=== PATIENT | female | born 1955 | race American Indian/Alaskan Native ===

== ENCOUNTER 2018-12-24 10:17 | Emergency (ER) | payer SELFPAY ==
[2018-12-24 10:27] VITALS: BP 188/109
--- NOTE | 2018-12-24 12:21 | Emergency Department Report ---
ED Lower Extremity HPI - General Chief Complaint: Fall Stated Complaint: RT/KNEE/LOWERBACK/RT THIGH PAIN Time Seen by Provider: 12/24/18 11:52 Source: patient Mode of arrival: Ambulatory Limitations: No Limitations - History of Present Illness Initial Comments: 63-year-old female with history of arthritis, presents to ED with right knee pain. She reports chronic right knee pain, states her right knee gave out yesterday. Patient denies falling directly onto her knee. Also reports acute exacerbation of her chronic low back pain as well. The patient states no relief with her usual therapies which consist of heating pad and OTC meds. MD Complaint: knee injury -: days(s) (1) Injury: Knee: Right Severity: moderate Improves With: nothing Worsens With: weight bearing Context: other ("knee gave out", hx of arthritis) Associated Symptoms: denies: snap/pop sensation, swelling - Related Data Previous Rx's Medication Instructions Recorded Last Taken Type Naproxen [Naprosyn] 500 mg PO BID #20 tablet 12/24/18 Unknown Rx predniSONE [Prednisone] 50 mg PO DAILY #5 tablet 12/24/18 Unknown Rx traMADol [Ultram] 50 mg PO Q6HR PRN #7 tablet 12/24/18 Unknown Rx Allergies Allergy/AdvReac Type Severity Reaction Status Date / Time No Known Allergies Allergy Unverified 12/24/18 10:22 ED Review of Systems ROS: Stated complaint: RT/KNEE/LOWERBACK/RT THIGH PAIN Other details as noted in HPI Comment: All other systems reviewed and negative Musculoskeletal: back pain, arthralgia Neurological: denies: weakness, numbness, paresthesias ED Past Medical Hx - Past Medical History Hx Arthritis: Yes - Surgical History Past Surgical History?: No - Social History Smoking Status: Never Smoker Substance Use Type: None - Medications Home Medications: Home Medications Medication Instructions Recorded Confirmed Last Taken Type Naproxen [Naprosyn] 500 mg PO BID #20 tablet 12/24/18 Unknown Rx predniSONE [Prednisone] 50 mg PO DAILY #5 tablet 12/24/18 Unknown Rx traMADol [Ultram] 50 mg PO Q6HR PRN #7 tablet 12/24/18 Unknown Rx ED Physical Exam - General Limitations: No Limitations General appearance: alert, in no apparent distress - Head Head exam: Present: atraumatic, normocephalic - Eye Eye exam: Present: normal appearance - ENT ENT exam: Present: mucous membranes moist - Neck Neck exam: Present: normal inspection - Respiratory Respiratory exam: Present: normal lung sounds bilaterally. Absent: respiratory distress - Cardiovascular Cardiovascular Exam: Present: regular rate, normal rhythm - GI/Abdominal GI/Abdominal exam: Absent: distended - Extremities Exam Extremities exam: Present: other (no swelling present to right knee, nontender to palpation, pt ambulatory in exam room) - Neurological Exam Neurological exam: Present: alert, oriented X3, normal gait - Psychiatric Psychiatric exam: Present: normal affect, normal mood - Skin Skin exam: Present: warm, dry, intact, normal color ED Course Vital Signs 12/24/18 10:25 Temperature 97.6 F Pulse Rate 95 H Respiratory 16 Rate Blood Pressure 188/109 O2 Sat by Pulse 97 Oximetry ED Lower Extremity MDM - Differential Diagnosis arthritis, chronic pain Critical care attestation.: If time is entered above; I have spent that time in minutes in the direct care of this critically ill patient, excluding procedure time. ED Disposition Clinical Impression: Chronic pain of right knee, Chronic low back pain Disposition: TO HOME OR SELFCARE Is pt being admited?: No Condition: Stable Instructions: Arthralgia (ED), Chronic Back Pain (ED) Prescriptions: Naproxen [Naprosyn] 500 mg PO BID #20 tablet predniSONE [Prednisone] 50 mg PO DAILY #5 tablet traMADol [Ultram] 50 mg PO Q6HR PRN #7 tablet PRN Reason: Pain [facility] [Primary Care Provider] - 3-5 Days PRIMARY CAREMD [Referring] - 3-5 Days SARA PARSONS MD [Staff Physician] - 3-5 Days Time of Disposition: 12:21
== END 2018-12-24 12:36 | disposition home or self-care (01) ==
LOC: ED 10:17
DX: M25.561 Pain in right knee (principal); M54.5 Low back pain; G89.29 Other chronic pain; M19.90 Unspecified osteoarthritis, unspecified site
CPT/HCPCS: 99282

== ENCOUNTER 2019-12-03 12:46 | Emergency (ER) | payer MEDICARE ==
[2019-12-03 12:53] VITALS: BP 173/91
--- NOTE | 2019-12-03 13:06 | Emergency Department Report ---
Blank Doc - Documentation Documentation: 64-year-old female that presents with generalized body aches, cough, and sore throat. This initial assessment/diagnostic orders/clinical plan/treatment(s) is/are subject to change based on patient's health status, clinical progression and re- assessment by fellow clinical providers in the ED. Further treatment and workup at subsequent clinical providers discretion. Patient/guardians urged not to elope from the ED as their condition may be serious if not clinically assessed and managed. Initial orders include: 1- Patient sent to [facility] for further evaluation and treatment 2- rap strep 3- cXR
--- NOTE | 2019-12-03 13:30 | XRay Report ---
CHEST PA AND LATERAL VIEWS INDICATION: cough. COMPARISON: None. FINDINGS: Support devices: None. Heart: Within normal limits. Lungs/Pleura: No acute pulmonary or pleural findings. There is mild scarring within the mid to lower lungs bilaterally. IMPRESSION: 1. No acute findings. Signer Name: Roberto Chen MD Signed: 12/03/2019 1:26 PM Workstation Name: [id number]
--- NOTE | 2019-12-03 15:44 | Emergency Department Report ---
ED ENT HPI - General Chief complaint: Sore Throat Stated complaint: SORE THROAT Time Seen by Provider: 12/03/19 13:05 Source: patient Mode of arrival: Ambulatory Limitations: No Limitations - History of Present Illness MD complaint: tooth pain, sore throat Location: throat Severity: mild, moderate Quality: aching, dull Consistency: constant Worsens with: swallowing, eating Associated Symptoms: cough (with mucus production), sore throat. denies: gum swelling, toothache, tinnitus - Related Data Previous Rx's Medication Instructions Recorded Last Taken Type Naproxen [Naprosyn] 500 mg PO BID #20 tablet 12/24/18 Unknown Rx predniSONE [Prednisone] 50 mg PO DAILY #5 tablet 12/24/18 Unknown Rx traMADoL [Ultram] 50 mg PO Q6HR PRN #7 tablet 12/24/18 Unknown Rx Amoxicillin/Potassium Clav 1 each PO BID #14 tablet 12/03/19 Unknown Rx [Augmentin 875-125 Tablet] Lidocaine Viscous 2% 5 ml MM Q3HR PRN #120 udc 12/03/19 Unknown Rx predniSONE [Deltasone] 20 mg PO QDAY #7 tab 12/03/19 Unknown Rx Allergies Allergy/AdvReac Type Severity Reaction Status Date / Time No Known Allergies Allergy Verified 12/03/19 12:48 ED Dental HPI - General Chief complaint: Sore Throat Stated complaint: SORE THROAT Time Seen by Provider: 12/03/19 13:05 Source: patient Mode of arrival: Ambulatory Limitations: No Limitations - Related Data Previous Rx's Medication Instructions Recorded Last Taken Type Naproxen [Naprosyn] 500 mg PO BID #20 tablet 12/24/18 Unknown Rx predniSONE [Prednisone] 50 mg PO DAILY #5 tablet 12/24/18 Unknown Rx traMADoL [Ultram] 50 mg PO Q6HR PRN #7 tablet 12/24/18 Unknown Rx Amoxicillin/Potassium Clav 1 each PO BID #14 tablet 12/03/19 Unknown Rx [Augmentin 875-125 Tablet] Lidocaine Viscous 2% 5 ml MM Q3HR PRN #120 udc 12/03/19 Unknown Rx predniSONE [Deltasone] 20 mg PO QDAY #7 tab 12/03/19 Unknown Rx Allergies Allergy/AdvReac Type Severity Reaction Status Date / Time No Known Allergies Allergy Verified 12/03/19 12:48 ED Review of Systems ROS: Stated complaint: SORE THROAT Other details as noted in HPI Comment: All other systems reviewed and negative ED Past Medical Hx - Past Medical History Hx Arthritis: Yes - Social History Smoking Status: Never Smoker Substance Use Type: None - Medications Home Medications: Home Medications Medication Instructions Recorded Confirmed Last Taken Type Naproxen [Naprosyn] 500 mg PO BID #20 tablet 12/24/18 Unknown Rx predniSONE [Prednisone] 50 mg PO DAILY #5 tablet 12/24/18 Unknown Rx traMADoL [Ultram] 50 mg PO Q6HR PRN #7 tablet 12/24/18 Unknown Rx Amoxicillin/Potassium Clav 1 each PO BID #14 tablet 12/03/19 Unknown Rx [Augmentin 875-125 Tablet] Lidocaine Viscous 2% 5 ml MM Q3HR PRN #120 udc 12/03/19 Unknown Rx predniSONE [Deltasone] 20 mg PO QDAY #7 tab 12/03/19 Unknown Rx ED Physical Exam - General Limitations: No Limitations General appearance: alert, in no apparent distress - Head Head exam: Present: atraumatic, normocephalic - Eye Eye exam: Present: normal appearance - ENT ENT exam: Present: mucous membranes moist, other (Pharynx red and swollen with negative to the right side. Tongue and uvula are midline.) - Neck Neck exam: Present: normal inspection - Respiratory Respiratory exam: Present: normal lung sounds bilaterally. Absent: respiratory distress - Cardiovascular Cardiovascular Exam: Present: regular rate, normal rhythm. Absent: systolic murmur, diastolic murmur, rubs, gallop - GI/Abdominal GI/Abdominal exam: Present: soft, normal bowel sounds - Extremities Exam Extremities exam: Present: normal inspection - Back Exam Back exam: Present: normal inspection. Absent: CVA tenderness (R), CVA tenderness (L), paraspinal tenderness, vertebral tenderness - Neurological Exam Neurological exam: Present: alert, oriented X3, CN II-XII intact, normal gait - Psychiatric Psychiatric exam: Present: normal affect, normal mood - Skin Skin exam: Present: warm, dry, intact, normal color. Absent: rash ED Course Vital Signs 12/03/19 12:49 Temperature 99.1 F Pulse Rate 110 H Respiratory 18 Rate Blood Pressure 173/91 O2 Sat by Pulse 97 Oximetry Critical care attestation.: If time is entered above; I have spent that time in minutes in the direct care of this critically ill patient, excluding procedure time. ED Disposition Clinical Impression: Pharyngitis, Bronchitis Disposition: DC-01 TO HOME OR SELFCARE Is pt being admited?: No Does the pt Need Aspirin: No Condition: Stable Instructions: Pharyngitis (ED), Acute Bronchitis (ED), Chronic Bronchitis (ED) Prescriptions: Amoxicillin/Potassium Clav [Augmentin 875-125 Tablet] 1 each PO BID #14 tablet predniSONE [Deltasone] 20 mg PO QDAY #7 tab Lidocaine Viscous 2% 5 ml MM Q3HR PRN #120 udc PRN Reason: Sore throat Referrals: [facility] [Provider Group] - 3-5 Days
== END 2019-12-03 16:25 | disposition home or self-care (01) ==
LOC: ED 12:46
DX: J02.9 Acute pharyngitis, unspecified (principal); J40 Bronchitis, not specified as acute or chronic; M19.90 Unspecified osteoarthritis, unspecified site; Z79.899 Other long term (current) drug therapy
CPT/HCPCS: 71046; 99283

== ENCOUNTER 2020-07-28 13:28 | Emergency (ER) | payer MEDICARE ==
[2020-07-28 19:23] LABS: Basophils % (Auto) 0.3 % (0.0-1.8); Eosinophils % (Auto) 0.6 % (0.0-4.3); Hematocrit 44.5 % (30.3-42.9); Hemoglobin 15.3 gm/dl (10.1-14.3); Lymphocytes # (Auto) 2.8 K/mm3 (1.2-5.4); Lymphocytes % (Auto) 42.8 % (13.4-35.0); Mean Corpuscular HGB Conc 34 % (30-34); Mean Corpuscular Volume 93 fl (79-97); Monocytes # (Auto) 0.4 K/mm3 (0.0-0.8); Monocytes % (Auto) 6.4 % (0.0-7.3); Platelet Count 207 K/mm3 (140-440); Red Cell Distribution Width 13.7 % (13.2-15.2)
[2020-07-28 19:28] LABS: Alanine Aminotransferase 11 units/L (7-56); Blood Urea Nitrogen 9 mg/dL (7-17); Calcium 9.5 mg/dL (8.4-10.2); Hemolysis Index 9
--- NOTE | 2020-07-28 19:32 | Emergency Department Report ---
ED Dizziness HPI - General Chief Complaint: Dizziness Time Seen by Provider: 07/28/20 18:41 - History of Present Illness Initial Comments: 64 y.o aaf presents to ER with dizziness and blurry vision intermittently for about a week, got worse in the past 2 days, accompanied by increased thirst, increased urination. Does not have any significant medical problems and does not take any prescribed medications. No chest pain, palpitations, shortness of breath, nausea, vomiting, fever, chills or night sweats. - Related Data Previous Rx's Medication Instructions Recorded Last Taken Type Naproxen [Naprosyn] 500 mg PO BID #20 tablet 12/24/18 Unknown Rx predniSONE [Prednisone] 50 mg PO DAILY #5 tablet 12/24/18 Unknown Rx traMADoL [Ultram] 50 mg PO Q6HR PRN #7 tablet 12/24/18 Unknown Rx Amoxicillin/Potassium Clav 1 each PO BID #14 tablet 12/03/19 Unknown Rx [Augmentin 875-125 Tablet] Lidocaine Viscous 2% 5 ml MM Q3HR PRN #120 udc 12/03/19 Unknown Rx predniSONE [Deltasone] 20 mg PO QDAY #7 tab 12/03/19 Unknown Rx Metformin HCl [metFORMIN] 1,000 mg PO BID 30 Days #60 tablet 07/28/20 Unknown Rx NIFEdipine [Nifedipine ER] 90 mg PO QDAY 30 Days #30 tablet.er 07/28/20 Unknown Rx Allergies Allergy/AdvReac Type Severity Reaction Status Date / Time No Known Allergies Allergy Verified 12/03/19 12:48 ED Review of Systems ROS: Stated complaint: Other details as noted in HPI Constitutional: denies: chills, fever Eyes: denies: eye pain, eye discharge, vision change ENT: denies: ear pain, throat pain Respiratory: denies: cough, shortness of breath, wheezing Cardiovascular: denies: chest pain, palpitations Endocrine: no symptoms reported Gastrointestinal: denies: abdominal pain, nausea, diarrhea Genitourinary: denies: urgency, dysuria, discharge Musculoskeletal: denies: back pain, joint swelling, arthralgia Skin: denies: rash, lesions Neurological: other (Dizziness). denies: headache, weakness, paresthesias Psychiatric: denies: anxiety, depression Hematological/Lymphatic: denies: easy bleeding, easy bruising ED Past Medical Hx - Past Medical History Hx Arthritis: Yes - Social History Smoking Status: Never Smoker Substance Use Type: None - Medications Home Medications: Home Medications Medication Instructions Recorded Confirmed Last Taken Type Naproxen [Naprosyn] 500 mg PO BID #20 tablet 12/24/18 Unknown Rx predniSONE [Prednisone] 50 mg PO DAILY #5 tablet 12/24/18 Unknown Rx traMADoL [Ultram] 50 mg PO Q6HR PRN #7 tablet 12/24/18 Unknown Rx Amoxicillin/Potassium Clav 1 each PO BID #14 tablet 12/03/19 Unknown Rx [Augmentin 875-125 Tablet] Lidocaine Viscous 2% 5 ml MM Q3HR PRN #120 udc 12/03/19 Unknown Rx predniSONE [Deltasone] 20 mg PO QDAY #7 tab 12/03/19 Unknown Rx Metformin HCl [metFORMIN] 1,000 mg PO BID 30 Days #60 tablet 07/28/20 Unknown Rx NIFEdipine [Nifedipine ER] 90 mg PO QDAY 30 Days #30 tablet.er 07/28/20 Unknown Rx ED Physical Exam - General General appearance: alert, in no apparent distress - Head Head exam: Present: atraumatic, normocephalic - Eye Eye exam: Present: normal appearance - ENT ENT exam: Present: mucous membranes moist - Neck Neck exam: Present: normal inspection - Respiratory Respiratory exam: Present: normal lung sounds bilaterally. Absent: respiratory distress - Cardiovascular Cardiovascular Exam: Present: normal rhythm, tachycardia. Absent: systolic murmur, diastolic murmur, rubs, gallop - GI/Abdominal GI/Abdominal exam: Present: soft, normal bowel sounds - Extremities Exam Extremities exam: Present: normal inspection - Back Exam Back exam: Present: normal inspection - Neurological Exam Neurological exam: Present: alert, oriented X3 - Psychiatric Psychiatric exam: Present: normal affect, normal mood - Skin Skin exam: Present: warm, dry, intact, normal color. Absent: rash ED Course Vital Signs 07/28/20 07/28/20 07/28/20 13:28 20:42 20:43 Temperature 98.3 F 97.9 F Pulse Rate 109 H 136 H Respiratory 18 18 18 Rate Blood Pressure 192/110 Blood Pressure 194/130 [Left] O2 Sat by Pulse 97 97 97 Oximetry 07/28/20 07/28/20 20:59 22:15 Temperature 98.1 F Pulse Rate 136 H 82 Respiratory 18 Rate Blood Pressure 194/130 Blood Pressure 174/117 [Left] O2 Sat by Pulse 97 Oximetry ED Medical Decision Making - Lab Data Result diagrams: 07/28/20 19:00 07/28/20 19:00 - EKG Data -: EKG Interpreted by Me EKG shows normal: sinus rhythm Rate: tachycardia - EKG Data When compared to previous EKG there are: previous EKG unavailable 07/29/20 01:48 sinus tach 126 - Medical Decision Making FSBS elevated, hemoglobin A1c elevated, new onset diabetes, feels better, wants to go home, will follow up with PCP in AM. Critical care attestation.: If time is entered above; I have spent that time in minutes in the direct care of this critically ill patient, excluding procedure time. ED Disposition Clinical Impression: New onset type 2 diabetes mellitus, Hypertension Disposition: OP ADMIT IP TO THIS HOSP Is pt being admited?: No Does the pt Need Aspirin: No Condition: Stable Instructions: Diabetes Mellitus Type 2 in Adults (ED), Hypertension (ED) Prescriptions: Metformin HCl [metFORMIN] 1,000 mg PO BID 30 Days #60 tablet NIFEdipine [Nifedipine ER] 90 mg PO QDAY 30 Days #30 tablet.er Referrals: PRIMARY CARE, [Primary Care Provider] - 3-5 Days
[2020-07-28 19:35] LABS: BUN/Creatinine Ratio 23
--- NOTE | 2020-07-28 20:06 | Cat Scan Report ---
NONENHANCED CT SCAN OF THE HEAD: INDICATION / CLINICAL INFORMATION: 64 years Female; blurred vision. TECHNIQUE: Routine CT head without contrast. All CT scans at this location are performed using CT dos e reduction for ALARA by means of automated exposure control. COMPARISON: None FINDINGS: BRAIN / INTRACRANIAL CONTENTS: No acute hemorrhage, mass effect, midline shift, or acute, large annmarie torial infarct. Frontal horns and temporal horns and third ventricle are normal. Body of the lateral ventricles prominent symmetrically bilaterally. No chronic infarct or focal atrophy. Normal brain vol ume and sulcal size for age. Periventricular low attenuation areas due to chronic small vessel diseas e CRANIOCERVICAL JUNCTION: No significant abnormality. ORBITS: No significant abnormality of visualized orbits. SINUSES / MASTOIDS: No significant abnormality of the visualized paranasal sinuses or mastoid air cathy ls. ADDITIONAL FINDINGS: No focal lesion along the visual pathway IMPRESSION: Acute focal parenchymal lesion in the brain Signer Name: Darline Ellsworth MD Signed: 07/28/2020 8:02 PM Workstation Name: [id number]
[2020-07-28] MEDS ORDERED: cloNIDine 0.2 MG TAB PO ONE (20:23)
[2020-07-28] MEDS ORDERED: metFORMIN 500 MG TAB PO ONE (20:23)
[2020-07-29 01:02] VITALS: BP 174/117
== END 2020-07-28 22:20 | disposition admitted as inpatient to this hospital (09) ==
LOC: ED 18:22
DX: E11.9 Type 2 diabetes mellitus without complications (principal); I10 Essential (primary) hypertension; M19.90 Unspecified osteoarthritis, unspecified site; Z79.899 Other long term (current) drug therapy
CPT/HCPCS: 36415; 70450; 80053; 82962; 83036; 85025